=== PATIENT | female | born 1955 | race Caucasian/White ===

== ENCOUNTER → 2016-11-16 | Outpatient (CLI) | payer OTHER | END | disposition home or self-care (01) | LOC: RAD.S 10:13 | DX: R91.8 Other nonspecific abnormal finding of lung field (principal) ==

== ENCOUNTER 2016-11-22 09:03 | Day surgery (SDC) | payer OTHER ==
[~2016-11-22] VITALS: Ht 165.1 cm; Wt 106.0 kg
== END 2016-11-22 12:15 | disposition home or self-care (01) ==
LOC: RAD.S 09:03 → EDSTATUS 10:30 → RAD.S 12:15
DX: C41.3 Malignant neoplasm of ribs, sternum and clavicle (principal); I10 Essential (primary) hypertension; M19.90 Unspecified osteoarthritis, unspecified site; F32.9 Major depressive disorder, single episode, unspecified; K21.9 Gastro-esophageal reflux disease without esophagitis; Z85.3 Personal history of malignant neoplasm of breast; Z85.42 Personal history of malignant neoplasm of other parts of uterus; Z88.0 Allergy status to penicillin; Z79.899 Other long term (current) drug therapy; Z79.82 Long term (current) use of aspirin; Z90.710 Acquired absence of both cervix and uterus; Z90.49 Acquired absence of other specified parts of digestive tract

== ENCOUNTER → 2016-11-29 | Outpatient (CLI) | payer OTHER | END | disposition home or self-care (01) | LOC: RAD.S 11-25 15:00 | DX: C50.919 Malignant neoplasm of unspecified site of unspecified female breast (principal); R91.8 Other nonspecific abnormal finding of lung field; K76.0 Fatty (change of) liver, not elsewhere classified ==

== ENCOUNTER 2016-12-01 06:57 | Day surgery (SDC) | payer OTHER ==
[~2016-12-01] VITALS: Ht 165.1 cm; Wt 106.8 kg
--- NOTE | 2016-12-21 10:45 | OR ---
ADMIT: 12/01/2016 RM/LOC: [facility] MR#: [id number] [address] [facility] [address] [place] [id number] CAIO VALERIO N ANGELAJuarez [facility] [address] [place], [place] [id number] Operative/Delivery Room Report SEX: F AGE: 61 : 1955 SURGERY DATE: 12/01/2016 SURGEON: Samuel Brooks MD PREOPERATIVE DIAGNOSES: Sternal mass, unknown malignancy, need for additional tissue for diagnosis as well as need for port for chemotherapy and EGD for diagnosis, possible gastrointestinal malignancy. POSTOPERATIVE DIAGNOSES: Sternal mass, unknown malignancy, need for additional tissue for diagnosis as well as need for port for chemotherapy and EGD for diagnosis, possible gastrointestinal malignancy. Normal appearing upper endoscopy with mild reflux of the gastroesophageal junction. PROCEDURE PERFORMED: 1. Right-sided internal jugular port placement with ultrasound and fluoro. 2. Sternal biopsy. 3. EGD with biopsies. ANESTHESIA: General endotracheal with addition of local. ESTIMATED BLOOD LOSS: Less than 10 mL. DESCRIPTION OF PROCEDURE: After appropriate informed consent was obtained, the patient was brought to the operating room. General endotracheal anesthesia was induced. The patient's neck and chest were prepped and draped in a sterile fashion including a sterile Ioban drape. Ultrasound was used to identify a large right internal jugular vein. A 1% lidocaine was injected. A small incision was created, and an 18-gauge Cook needle on a syringe was used to access this right internal jugular vein under realtime ultrasound guidance. A picture was taken for the patient's permanent record. A good return of dark red and nonpulsatile blood. Guidewire was passed easily, confirmed to be in the superior vena cava with fluoro. Additional local was injected in skin and deep tissues of right upper chest wall. An incision was created. Subcutaneous pocket was created. Tubing was then tunneled from the reservoir site up to the neck incision site. A split sheath dilator was then passed over the wire under fluoro guidance. The wire and dilator were removed. Tubing was then passed down through the split sheath. Split sheath was removed, tubing was then pulled back until tip resided in atrial caval junction. Tubing was cut at 25 cm, attached to PowerPort reservoir, and locked in place. The reservoir was then tacked down to chest wall fascia using two 0 Ethibond sutures. The reservoir was then accessed, aspirated, and flushed easily. It was then flushed with heparinized saline. The wound was then closed with 3-0 Vicryl in the dermal layer and running 4-0 Monocryl in the subcuticular layer. Neck incision was closed with single 4-0 Monocryl. Sterile dressings were applied. I then proceeded with the biopsies of the sternal mass. Incision was made directly over this, just off the left side of the midline, it was carried deep with cautery. The muscle fibers were divided and then I got down onto the this hard mass coming directly out of sternum. ADMIT: 12/01/2016 RM/LOC: [facility] MR#: [id number] [address] [place] [id number] CAIO VALERIO [address] [place] [address] Operative/Delivery Room Report SEX: F AGE: 61 : 1955 Significant portion of this mass was removed with a rongeur to get enough tissue for pathology. With the significant portion of the mass removed, the wound was then cauterized, irrigated out, and then injected with lidocaine. It was then closed with 3-0 Vicryl in the dermal layer and running 4-0 Monocryl in the subcuticular layer. Sterile dressings were applied. I then proceeded with the EGD. A well-lubricated endoscope was introduced and passed down the esophagus. The proximal and mid esophagus appeared normal. Distal esophagus showed very mild reflux changes, no evidence of a hiatal hernia. The scope was advanced in the stomach. The gastric mucosa appeared normal throughout. The pylorus was intubated. Duodenal bulb, 2nd and 3rd portions of the duodenum appeared normal. The scope was pulled back into the stomach, retroflexed, revealing no hiatal hernia from below, no proximal gastritis or mass. Sterile biopsy was taken of the antrum. Multiple biopsies were taken at the GE junction. The stomach was then deflated and the scope withdrawn. The patient tolerated the procedure well and was taken to the recovery room in stable condition. Samuel Brooks MD/ alexi JOB #: [id number] CC: Samuel Brooks, Attending Physician Bola Silva, Family Physician Bola Silva MD
== END 2016-12-01 12:20 | disposition home or self-care (01) ==
LOC: SSS 06:57
PROC: 0DB68ZX Excision of Stomach, Via Natural or Artificial Opening Endoscopic, Diagnostic (ICD-10-PCS; principal; 2016-12-01)
PROC: B543ZZA Ultrasonography of Right Jugular Veins, Guidance (ICD-10-PCS; principal; 2016-12-01)
PROC: 05HM33Z Insertion of Infusion Device into Right Internal Jugular Vein, Percutaneous Approach (ICD-10-PCS; principal; 2016-12-01)
PROC: B513YZA Fluoroscopy of Right Jugular Veins using Other Contrast, Guidance (ICD-10-PCS; principal; 2016-12-01)
PROC: 0DB38ZX Excision of Lower Esophagus, Via Natural or Artificial Opening Endoscopic, Diagnostic (ICD-10-PCS; principal; 2016-12-01)
PROC: 0PB Upper Bones, Excision (ICD-10-PCS; principal; 2016-12-01)
DX: C41.3 Malignant neoplasm of ribs, sternum and clavicle (principal); K29.50 Unspecified chronic gastritis without bleeding; I10 Essential (primary) hypertension; E66.9 Obesity, unspecified; K21.9 Gastro-esophageal reflux disease without esophagitis; Z88.0 Allergy status to penicillin; Z79.899 Other long term (current) drug therapy; Z90.710 Acquired absence of both cervix and uterus; Z98.890 Other specified postprocedural states; Z79.82 Long term (current) use of aspirin

== ENCOUNTER → 2016-12-12 | Outpatient (CLI) | payer OTHER | END | disposition home or self-care (01) | LOC: CARD 09:48 | DX: M79.604 Pain in right leg (principal); M79.605 Pain in left leg; M79.89 Other specified soft tissue disorders ==

== ENCOUNTER → 2016-12-17 | Outpatient (CLI) | payer OTHER | END | disposition home or self-care (01) | LOC: PTH.S 08:00 | DX: C34.82 Malignant neoplasm of overlapping sites of left bronchus and lung (principal); I10 Essential (primary) hypertension ==

== ENCOUNTER → 2017-02-15 | Outpatient (CLI) | payer OTHER | END | disposition home or self-care (01) | LOC: RAD.S 15:07 | DX: C34.82 Malignant neoplasm of overlapping sites of left bronchus and lung (principal); R91.8 Other nonspecific abnormal finding of lung field ==